=== PATIENT | female | born 1985 | race Caucasian/White ===

== ENCOUNTER 2017-01-10 13:52 | Emergency (ER) | payer OTHER ==
[~2017-01-10] VITALS: Ht 160 cm; Wt 54.4 kg
[2017-01-10] MEDS ORDERED: NORFLEX100 MG PO (16:12)
[2017-01-10] MEDS ORDERED: NAPROSYN500 MG PO (16:12)
[2017-01-10] MEDS ORDERED: LIDODERM 5%1 PATC1 TRANSDERM (16:26)
[2017-01-10 16:45] VITALS: BP 125/84
== END 2017-01-10 16:45 | disposition home or self-care (01) ==
LOC: ER 13:52
DX: S20.212A Contusion of left front wall of thorax, initial encounter (principal); S16.1XXA Strain of muscle, fascia and tendon at neck level, initial encounter; S50.812A Abrasion of left forearm, initial encounter; V89.2XXA Person injured in unspecified motor-vehicle accident, traffic, initial encounter; Y93.I9 Activity, other involving external motion; Y92.89 Other specified places as the place of occurrence of the external cause; Y99.8 Other external cause status